=== PATIENT | female | born 1930 | race Caucasian/White ===

== ENCOUNTER → 2016-03-17 | Outpatient (CLI) | payer SELFPAY ==
[2016-03-17 13:08] LABS: Blood Urea Nitrogen 14 mg/dL (7-17); Non-African American GFR(MDRD) >60 (>60 ml/min/1.73 sqM)
== END | disposition home or self-care (01) ==
LOC: LABWHC1 12:16
PROVIDERS: ATTEND Orthopaedic Surgery Orthopaedic Surgery of the Spine
DX: S32.020D Wedge compression fracture of second lumbar vertebra, subsequent encounter for fracture with routine healing (principal); M99.83 Other biomechanical lesions of lumbar region; R53.1 Weakness; M54.16 Radiculopathy, lumbar region; M54.5 Low back pain
CPT/HCPCS: 36415; 82565; 84520

== ENCOUNTER → 2017-03-12 | Outpatient (CLI) | payer MEDICARE ==
[2017-03-12 16:18] LABS: HCT 37.5 % (34.0-46.0); HGB 12.2 gm/dL (11.4-16.0); MCH 27.9 pg (25.0-35.0); MCHC 32.4 g/dL (31.0-37.0); MCV 86.1 fL (80.0-100.0); Mean Platelet Volume 7.5; RBC 4.36 m/uL (3.80-5.40); RDW 13.7 % (11.5-15.5); WBC 10.1 k/uL (3.8-10.6)
[2017-03-12 16:24] LABS: Appearance,Urine Clear (Clear); Bilirubin,Urine Negative (Negative); Blood,Urine Negative (Negative); Color,Urine Yellow; Glucose,Urine (UA) Negative (Negative); Hyaline Casts,Urine 1 /lpf (0-2); Ketones,Urine Negative (Negative); Leukocyte Esterase,Urine Small (Negative); Mucus,Urine Rare /hpf; Nitrite,Urine Negative (Negative); PH, Urine 6.5 (5.0-8.0); Protein,Urine Negative (Negative); RBC,Urine 2 /hpf (0-5); Specific Gravity,Urine 1.013 (1.001-1.035); Squamous Epithelial Cell,Urine 1 /hpf (0-4); Urobilinogen,Urine <2.0 mg/dL (<2.0); WBC,Urine 4 /hpf (0-5)
[2017-03-12 16:28] LABS: Platelet Count 467 k/uL (150-450)
[2017-03-12 16:29] LABS: Albumin 3.8 g/dL (3.5-5.0); Calcium 9.6 mg/dL (8.4-10.2); INR 1.1 (<1.2); Partial Thromboplastin Time 22.1 sec (22.0-30.0); Potassium 4.5 mmol/L (3.5-5.1); Prothrombin Time 10.8 sec (9.0-12.0); Total Bilirubin 0.3 mg/dL (0.2-1.3); Total Protein 6.5 g/dL (6.3-8.2)
== END | disposition home or self-care (01) ==
LOC: LABPAT 15:42
PROVIDERS: ATTEND Orthopaedic Surgery
DX: Z01.818 Encounter for other preprocedural examination (principal); Z01.812 Encounter for preprocedural laboratory examination
CPT/HCPCS: 80053; 81001; 85027; 85610; 85730; 87070; 93005

== ENCOUNTER 2017-03-29 07:55 | Inpatient (IN) | payer BC, MEDICARE ==
[2017-03-16 15:15] VITALS: BMI 30.2
[~2017-03-29 07:55] MED LIST: ACETAMINOPHEN TAB 500 MG TAB PO ONE; HYDROmorphone 0.5 MG/0.5 ML SYRINGE IVP PRN; MELOXICAM 7.5 MG TAB PO ONE; MORPHINE SULFATE 4 MG/ML SYRINGE IV PRN; ROPIVACAINE 246.25 MG, EPINEPHrine 0.5 MG, KETOROLAC 30 MG, cloNIDine HCL/PF 80 MCG, WA... MISCELLANE ONE; TRANEXAMIC ACID 1,000 MG in SODIUM CHLORIDE 0.9% 50 ML IVPB ONE
[2017-03-29 08:35] LABS: Glucose,Whole Blood 96 mg/dL (75-99)
[2017-03-29] MEDS ORDERED: LIDOCAINE 1% 20 ML VIAL (10MG/ML) FOR IV START INTRADERMA ONE (08:37)
[2017-03-29] MEDS: LACTATED RINGERS 1,000 ML IV SCH ×3 (08:37→15:07)
[2017-03-29] MEDS ORDERED: ONDANSETRON 4 MG/2 ML VIAL IVP ONE (08:47)
[2017-03-29] MEDS ORDERED: MIDAZOLAM 2 MG/2 ML VIAL IVP ONE (09:02)
[2017-03-29] MEDS ORDERED: MAGNESIUM HYDROXIDE 2,400 MG/10 ML CUP PO PRN (09:18)
[2017-03-29] MEDS ORDERED: HYDROcodone/APAP 7.5-325MG 1 EACH TAB PO PRN (09:18)
[2017-03-29] MEDS ORDERED: NALOXONE 0.4 MG/ML 1 ML VIAL IV PRN (09:18)
[2017-03-29] MEDS ORDERED: hydrOXYzine PAMOATE 25 MG CAP PO PRN (09:18)
[2017-03-29] MEDS ORDERED: DIAZEPAM 5 MG TAB PO PRN ×2 (09:18)
[2017-03-29] MEDS ORDERED: HYDROmorphone 2 MG/ML 1 ML SYRINGE IVP PRN ×4 (09:18)
[2017-03-29] MEDS ORDERED: ONDANSETRON 4 MG/2 ML VIAL IVP PRN (09:18)
[2017-03-29] MEDS ORDERED: BISACODYL 10 MG SUPP RECTAL PRN (09:18)
[2017-03-29] MEDS ORDERED: NA PHOS,M-B/NA PHOS,DI-BA 133 ML ENEMA RECTAL PRN (09:18)
[2017-03-29] MEDS ORDERED: MIDAZOLAM 2 MG/2 ML VIAL ONE (09:47)
[2017-03-29] MEDS ORDERED: fentaNYL (PF) 50 MCG/ML 2 ML AMP ONE (09:47)
[2017-03-29] MEDS ORDERED: TRANEXAMIC ACID 1,000 MG/10 ML VIAL ONE (09:47)
[2017-03-29] MEDS ORDERED: diphenhydrAMINE 50 MG/ML 1 ML VIAL ONE (09:47)
[2017-03-29] MEDS ORDERED: SODIUM CHLORIDE 0.9% 100 ML BAG ONE (09:47)
[2017-03-29] MEDS ORDERED: ceFAZolin 1,000 MG in SODIUM CHLORIDE 0.9% 1,000 ML IRRIGATION ONE ×2 (09:47→10:32)
[2017-03-29] MEDS: ceFAZolin IN SWFI 2 GM/20 ML SYRINGE IVP ONE ×2 (09:53→09:55)
[2017-03-29] MEDS ORDERED: LACTATED RINGERS 1,000 ML IV ONE (11:02)
--- NOTE | 2017-03-29 11:03 | P.OP ---
Date of Procedure: 03/29/17 Preoperative Diagnosis: Severe osteoarthritis left knee Postoperative Diagnosis: Severe osteoarthritis left knee Procedure(s) Performed: Left total knee arthroplasty Implants: Ibarra [employer] Nephew Oxinium femoral component size 5 narrow, left Ibarra [employer] Nephew So II left nonporous tibial baseplate size 4 Ibarra [employer] Nephew size 9 mm Legion XLPE high flexion articular insert, size 3-4 Ibarra [employer] Nephew So II resurfacing patellar component, 32 mm All components were cemented using Penelope bone cement.. The articulation is Oxinium on polyethylene. Anesthesia: spinal Surgeon: Eliezer Young Assistant Front Office Manager #1: Molly Madison Estimated Blood Loss (ml): 50 Pathology: other (Bone and cartilage) Condition: stable Disposition: PACU Indications for Procedure: After failure of conservative treatment we discussed the surgical and nonsurgical treatment options at length. Patient wishes to proceed with a total knee arthroplasty. Complications specific to this procedure were discussed at length, including but not limited to infection, bleeding, stiffness , and nerve injury. Patient is aware of all these complications and informed consent was obtained Operative Findings: The operative findings are consistent with severe osteoarthritis of the left knee Description of Procedure: Patient was seen in the preoperative area consent was reviewed and operative site was marked with a skin marker. An adductor canal pain catheter was placed by anesthesia in the preoperative area. Patient was then brought to the operating room and given preoperative antibiotics intravenously. A spinal anesthetic was administered by the anesthesia department. A tourniquet was placed on the upper thigh and the lower extremity was prepped and draped in usual sterile fashion. A gram of transexamic acid was given. A universal timeout was then performed which confirmed the patient's name, surgical site, ALLERGIES, and consent. The lower extremity was then exsanguinated and tourniquet was inflated to 250 mmHg. A standard and anterior midline approach to the knee was performed. The skin and subcutaneous tissue was dissected down to the patellar tendon. A medial parapatellar arthrotomy was then performed. The knee was then extended, the patellar was everted, and the knee was again flexed. Anterior horns of both menisci were excised, and a release was performed to the posterior medial aspect of the knee. On gross visual inspection, there was complete loss of articular cartilage in the medial and patellofemoral joint spaces. There was also significant cartilage damage in the lateral compartment. There were multiple periarticular osteophytes which were then removed with a Ronguer. The femoral canal was then opened with the appropriate drill, and the intramedullary femoral cutting guide was then placed and set for 4 of valgus. The distal femoral cutting block was then pinned in place, and the distal femur was then cut. The cutting block was then removed and the cut was checked for flatness. Next, the sizing guide was then placed and set for 3 external rotation based off of the epicondylar axis and Whitesides line. After the femur was sized, the appropriate 4-in-1 cutting block was then pinned in place. The anterior condyles were cut without notching. The posterior and chamfer cuts were performed while protecting the collateral ligaments. The cutting block was then removed, and the femoral canal was plugged with autologous bone. Attention was then directed to the tibia. The remaining ACL was removed with a Ronguer, and the tibia was then gently subluxed forward with a large bent knee retractor. Any remaining menisci was excised. The posterior lateral corner was cauterized in order to cauterize the lateral geniculate artery. The extra medullary tibial cutting guide was then placed, set for the appropriate rotation , slope, and depth of resection. The proximal tibia cutting guide was then pinned in place. Proximal tibia was then cut and sized. Next trials were then placed with the appropriate-sized insert. The knee was able to fully extend and flex to 130 and was stable throughout all range of motion. The knee was then extended, patella everted. Patella was then measured, and then using an osteotomy guide, the patella was cut at the appropriate level. The patella was then measured and drilled and the patella trial was then placed. The knee was then taken through range of motion with the patella trial and the patella tracked normally. The knee was then extended patella trial was then removed and the patella was everted. Knee was then flexed and lug holes were drilled through the femoral trial and the femoral trial was then removed. The tibial was then exposed, and the tibial broach guide was then pinned in place after it was set for the appropriate rotation to allow for the most coverage without overhang. The tibia was then reamed and broached. The cut surfaces of bone were then irrigated with pulsatile lavage. The posterior structures were injected with the ropivacaine solution. The knee was also irrigated with Irrisept solution. The components were then opened, the cement was mixed, and the components were then cemented in place. The cement was allowed to harden with the knee in full extension. While the cement was hardening, the remaining soft tissues were then injected with a ropivacaine solution, which consisted of 246.25 mg of ropivacaine, 0.5 mg of epinephrine, 30 mg of Toradol, 80 g of clonidine, and 48.45 mL of sterile water, for a total of 100 mL of fluid injected. After the cemented hardened. The tourniquet was released, and hemostasis was obtained. A second gram of transexamic acid was given. The knee was again irrigated. The knee was again taken through range of motion and found to be stable throughout all range of motion of 0-130 , and the patella tracked normally. The fascia was then closed with #2 strata fix suture. The subcutaneous tissue was closed with 3-0 Vicryl and 3-0 strata fix. Dermabond glue was used for the skin and placed with the knee in flexion. The patient was placed in a sterile silver dressing. Patient was then transferred to recovery room in stable condition. The marketing assistant retail division [place] was required due the complexity surgery and the need for a skilled rn medical surgical. She assisted in positioning, draping, retraction, and closure of the wound.
[2017-03-29 11:54] LABS: Glucose,Whole Blood 112 mg/dL (75-99)
--- NOTE | 2017-03-29 12:49 | XR ---
EXAMINATION TYPE: XR knee limited LT DATE OF EXAM: 03/29/2017 CLINICAL HISTORY: Left knee pain and arthritis status post total knee replacement. TECHNIQUE: Portable AP and crosstable lateral views of the left knee are obtained immediately postop eratively. COMPARISON: Left knee x-ray February 08, 2017 FINDINGS: Metallic hardware from total left knee arthroplasty is seen and appears satisfactory in al ignment and position. Eagle osseous structures are demineralized. There is evidence of recent surge ry with diffuse subcutaneous gas anteriorly and medially noted. Posterior vascular calcification is p resent. IMPRESSION: METALLIC HARDWARE FROM TOTAL LEFT KNEE ARTHROPLASTY IS SATISFACTORY IN ALIGNMENT.
[2017-03-29] MEDS ORDERED: ROPIVACAINE 1,100 MG, SODIUM CHLORIDE 0.9% 330 ML MISCELLANE PRN ×2 (13:20)
[2017-03-29] MEDS: SODIUM CHLORIDE 0.9% 1,000 ML IV SCH (15:36)
[2017-03-29] MEDS: ceFAZolin IN SWFI 2 GM/20 ML SYRINGE IVP SCH (17:06)
[2017-03-29] MEDS: ATORVASTATIN 40 MG TAB PO SCH (17:06)
[2017-03-29] MEDS: EZETIMIBE 10 MG TAB PO SCH (17:06)
[2017-03-29 17:16] LABS: Glucose,Whole Blood 102 mg/dL (75-99)
[2017-03-29] MEDS: INSULIN ASPART 100 UNIT/ML 1 ML 10 ML VIAL SQ SCH ×2 (17:36→22:00)
[2017-03-29 21:11] LABS: Glucose,Whole Blood 119 mg/dL (75-99)
[2017-03-29] MEDS: ASPIRIN 325 MG TAB PO SCH (22:01)
[2017-03-29] MEDS: SENNOSIDES-DOCUSATE SODIUM 1 EACH TAB PO SCH (22:01)
[2017-03-30] MEDS: ceFAZolin IN SWFI 2 GM/20 ML SYRINGE IVP SCH (01:20)
[2017-03-30] MEDS: SODIUM CHLORIDE 0.9% 1,000 ML IV SCH ×2 (01:20→15:09)
[2017-03-30] MEDS ORDERED: ACETAMINOPHEN TAB 325 MG TAB PO PRN (01:38)
[2017-03-30] MEDS: LEVOTHYROXINE 75 MCG TAB PO SCH (05:38)
[2017-03-30] MEDS: LACTATED RINGERS 1,000 ML IV SCH (05:47)
[2017-03-30 07:16] LABS: Glucose,Whole Blood 129 mg/dL (75-99)
[2017-03-30] MEDS: HYDROcodone/APAP 7.5-325MG 1 EACH TAB PO PRN ×2 (07:25→17:55)
[2017-03-30 08:01] LABS: Basophils # (A) 0.1 k/uL (0-0.2); Basophils % (A) 0 %; Eosinophils # (A) 0.1 k/uL (0-0.7); Eosinophils % (A) 1 %; HCT 33.1 % (34.0-46.0); HGB 10.6 gm/dL (11.4-16.0); Lymphocytes # (A) 0.5 k/uL (1.0-4.8); Lymphocytes % (A) 3 %; MCH 27.8 pg (25.0-35.0); MCHC 31.9 g/dL (31.0-37.0); Monocytes # (A) 1.6 k/uL (0-1.0); Monocytes % (A) 9 %; Neutrophils # (A) 16.1 k/uL (1.3-7.7); Neutrophils % (A) 87 %; RDW 14.8 % (11.5-15.5); WBC 18.6 k/uL (3.8-10.6)
[2017-03-30 08:02] LABS: Platelet Count 103 k/uL (150-450)
[2017-03-30] MEDS: INSULIN ASPART 100 UNIT/ML 1 ML 10 ML VIAL SQ SCH ×4 (08:10→21:24)
[2017-03-30] MEDS: ATORVASTATIN 40 MG TAB PO SCH (08:25)
[2017-03-30] MEDS: ASPIRIN 325 MG TAB PO SCH ×2 (08:25→21:24)
[2017-03-30] MEDS: MELOXICAM 7.5 MG TAB PO SCH (08:25)
[2017-03-30] MEDS: EZETIMIBE 10 MG TAB PO SCH (08:25)
--- NOTE | 2017-03-30 09:55 | P.PN ---
Subjective Progress Note Date: 03/30/17 This is an 87-year-old female who is status post left total knee arthroplasty. This is postoperative day #1. Patient has complained of pain to the left knee but states it is under control. Patient denies any fever/chills, numbness, weakness, tingling, abdominal pain, shortness of breath or chest pain. Objective - Vital Signs Vital signs: Vital Signs Temp 98.6 F 03/30/17 08:29 Pulse 70 03/30/17 07:00 Resp 16 03/30/17 07:00 BP 94/61 03/30/17 07:00 Pulse Ox 95 03/30/17 07:00 Intake & Output 03/29/17 03/30/17 03/30/17 18:59 06:59 18:59 Intake Total 1722 118 Output Total 700 300 Balance 1022 -182 Weight 68.039 kg Intake: IV 1602 Oral 120 118 Output: Urine 650 300 Estimated Blood Loss 50 Other: Voiding Method Urinal Toilet Toilet # Voids 1 1 - Exam Vital signs are stable. Patient is in no acute distress and is alert and oriented 3. Calf is soft and nontender to palpation. Dressing is clean, dry, and intact. Patient has full foot and ankle motion without pain or difficulty. Neurovascular status and circulatory status are intact. - Labs CBC & Chem 7: 03/30/17 07:07 Labs: Abnormal Lab Results - Last 24 Hours (Table) 03/29/17 03/29/17 03/29/17 Range/Units 11:52 17:11 20:57 WBC (3.8-10.6) k/uL Hgb (11.4-16.0) gm/dL Hct (34.0-46.0) % Plt Count (150-450) k/uL Neutrophils # (1.3-7.7) k/uL Lymphocytes # (1.0-4.8) k/uL Monocytes # (0-1.0) k/uL POC Glucose (mg/dL) 112 H 102 H 119 H (75-99) mg/dL 03/30/17 03/30/17 Range/Units 07:07 07:09 WBC 18.6 H (3.8-10.6) k/uL Hgb 10.6 L (11.4-16.0) gm/dL Hct 33.1 L (34.0-46.0) % Plt Count 103 L D (150-450) k/uL Neutrophils # 16.1 H (1.3-7.7) k/uL Lymphocytes # 0.5 L (1.0-4.8) k/uL Monocytes # 1.6 H (0-1.0) k/uL POC Glucose (mg/dL) 129 H (75-99) mg/dL Assessment and Plan (1) Primary osteoarthritis of left knee Current Visit: Yes Status: Acute Code(s): M17.12 - UNILATERAL PRIMARY OSTEOARTHRITIS, LEFT KNEE SNOMED Code(s): 666024276 (2) S/P total knee arthroplasty Current Visit: Yes Status: Acute Code(s): Z96.659 - PRESENCE OF UNSPECIFIED ARTIFICIAL KNEE JOINT SNOMED Code(s): 2038757549848 Plan: #1 Continue with routine postoperative care, leave dressing in place for one week #2 Anticoagulation with aspirin. #3 Physical therapy and CPM today. #4 Appreciate input from medicine. #5 Anticipate discharge to rehab .
--- NOTE | 2017-03-30 10:02 | P.ONQ ---
Anesthesiology Proc Note - PNB - Peripheral Nerve Block Performed Left Adductor Canal Infusion Time Out Performed: Yes Procedure Start Time: 08:59 Procedure Stop Time: :07 Indication: Acute Post-Operative Pain, Requested by physician Sedation Type: Sedate with meaningful contact maintained Preparation: Sterile Dressing Position: Supine Catheter: Indwelling Needle Types: On-Q Needle Size: 100mm (4") Needle Gauge: 18 Technique: Ultrasound Injectate: 0.5% Ropivacaine (see comment for volume) (ropi .5% 20cc) Blood Aspirated: No Pain Paresthesia on Injection Noted: No Resistance on Injection: Normal Events: Uneventful and Well Tolerated
--- NOTE | 2017-03-30 10:20 | P.PN ---
Progress Note - Text 03/30 710am 87-year-old female status post left total knee replacement by Dr. Young. Patient seen this morning and evaluated for postop pain control, she saw confused and I was unable to get a definitive answer from her. On-Q pump solution running at 8 mL an hour. Plan to continue infusion.
[2017-03-30 11:43] LABS: Glucose,Whole Blood 164 mg/dL (75-99)
--- NOTE | 2017-03-30 12:20 | XR ---
EXAMINATION TYPE: XR chest 1V DATE OF EXAM: 03/30/2017 COMPARISON: Prior chest x-ray 02/09/2017 HISTORY: Rehabilitation placement TECHNIQUE: Single frontal view of the chest is obtained. FINDINGS: Lung volumes are low, patient is rotated. There is no focal air space opacity, pleural eff usion, or pneumothorax seen. The cardiac silhouette size is stable accounting for rotation, techniqu e. Bilateral shoulder arthroplasties again noted. Increased density within the right hilar region lik evelia due to previously administered radiographic contrast and is stable. The aorta is dense. The osse ous structures are intact. IMPRESSION: No acute process.
--- NOTE | 2017-03-30 12:52 | P.CONS ---
History of Present Illness - Reason for Consult fever and leukocytosis - History of Present Illness patient was admitted for elective left knee arthroplasty sexes and underwent surgery yesterday patient received perioperative antibiotics patient started having fever today morning and does have leukocytosis chest x-ray did not show atelectasis or pneumonia urine cultures CVA blood cultures were ordered patient will not be started on antibiotics at will continue to monitor if she has febrile episodes patient to be medically started antibiotic. We are also awaiting results of UA. patient denied any dysuria nausea vomiting. Patient is presently on 3 L of oxygen and she'll need incentive spirometry. Review of Systems REVIEW OF SYSTEMS: CONSTITUTIONAL: No fever, no malaise, no fatigue. HEENT: No recent visual problems or hearing problems. Denied any sore throat. CARDIOVASCULAR: No chest pain, orthopnea, PND, no palpitations, no syncope. PULMONARY: No shortness of breath, no cough, no hemoptysis. GASTROINTESTINAL: No diarrhea, no nausea, no vomiting, no abdominal pain. Normoactive bowel sounds. NEUROLOGICAL: No headaches, no weakness, no numbness. HEMATOLOGICAL: Denies any bleeding or petechiae. GENITOURINARY: Denies any burning micturition, frequency, or urgency. MUSCULOSKELETAL/RHEUMATOLOGICAL: Denies any joint pain, swelling, or any muscle pain. ENDOCRINE: Denies any polyuria or polydipsia. The rest of the 14-point review of systems is negative. Past Medical History Past Medical History: Diabetes Mellitus, Hyperlipidemia, Hypertension, Osteoarthritis (OA), Thyroid Disorder Additional Past Medical History / Comment(s): rt eye macular degeneration,colon polpys-benign, "6 months ago lt knee gave out -had pt and xrays told it was arthritis", numbness lower legs/feet,constipation, past compresion fx,steroids Jan 2017 Last Myocardial Infarction Date:: 2008 History of Any Multi-Drug Resistant Organisms: None Reported Past Surgical History: Adenoidectomy, Appendectomy, Back Surgery, Cholecystectomy, Hernia Repair, Hysterectomy, Orthopedic Surgery, Tonsillectomy Additional Past Surgical History / Comment(s): cataracts removed,total rt shoulder,lt shoulder repair,rt total knee,back fusion,multiple finger procedures Past Anesthesia/Blood Transfusion Reactions: Motion Sickness Additional Past Anesthesia/Blood Transfusion Reaction / Comm: "stated "held breath with finger surgery" Past Psychological History: No Psychological Hx Reported Additional Psychological History / Comment(s): pt is a lives with daughter wang. uses walker /w/c when up. Smoking Status: Former smoker Past Alcohol Use History: Occasional Additional Past Alcohol Use History / Comment(s): started smoking at age 14(1944 )and quit 1951. smoked 1 ppd. Past Drug Use History: None Reported - Past Family History Mother Family Medical History: Seizure Disorder Additional Family Medical History / Comment(s): epileptic, anueysm Father Family Medical History: Diabetes Mellitus Additional Family Medical History / Comment(s): macular degeneration, blind Medications and Allergies Home Medications Medication Instructions Recorded Confirmed Type Baclofen [Lioresal] 5 mg PO TID 02/08/17 03/29/17 History Ezetimibe/Simvastatin [Vytorin 1 tab PO DAILY 02/08/17 03/29/17 History 10-80 mg Tablet] Furosemide [Lasix] 40 mg PO DAILY 02/08/17 03/29/17 History Levothyroxine Sodium [Synthroid] 75 mcg PO QAM 02/08/17 03/29/17 History Potassium Chloride ER [K-Dur 10] 10 meq PO BID 02/08/17 03/29/17 History Sennosides [Ex-Lax] 15 mg PO HS 02/08/17 03/29/17 History metFORMIN HCL [Glucophage] 500 mg PO DAILY 02/08/17 03/29/17 History HYDROcodone/APAP 5-325MG [[place] 1 tab PO TID PRN 03/16/17 03/29/17 History 5-325] Stool Softner 1 tab PO HS 03/16/17 03/29/17 History Allergies Allergy/AdvReac Type Severity Reaction Status Date / Time No Known Allergies Allergy Verified 03/29/17 10:03 Physical Exam Vitals: Vital Signs Temp Pulse Pulse Resp BP Pulse Ox 03/30/17 08:29 98.6 F 03/30/17 07:00 100.3 F H 70 16 94/61 95 03/30/17 01:25 100.1 F H 71 16 126/57 92 L 03/29/17 19:59 98.3 F 60 16 104/62 03/29/17 15:31 97.8 F 57 L 16 113/50 98 03/29/17 14:44 58 L 16 110/53 99 03/29/17 14:14 59 L 16 110/53 99 03/29/17 13:44 52 L 16 112/56 100 03/29/17 13:14 56 L 16 109/56 100 Intake and Output 03/29/17 03/30/17 03/30/17 22:59 06:59 14:59 Intake Total 120 118 Output Total 350 300 Balance -230 -182 Intake: Oral 120 118 Output: Urine 350 300 Other: Voiding Method Toilet Toilet # Voids 1 1 Weight 68.039 kg PHYSICAL EXAMINATION: GENERAL: The patient is alert and oriented x3, not in any acute distress. Well developed, well nourished. HEENT: Pupils are round and equally reacting to light. EOMI. No scleral icterus. No conjunctival pallor. Normocephalic, atraumatic. No pharyngeal erythema. No thyromegaly. CARDIOVASCULAR: S1 and S2 present. No murmurs, rubs, or gallops. PULMONARY: Chest is clear to auscultation, no wheezing or crackles. ABDOMEN: Soft, nontender, nondistended, normoactive bowel sounds. No palpable organomegaly. MUSCULOSKELETAL: deferred to orthopedic surgery EXTREMITIES: No cyanosis, clubbing, or pedal edema. NEUROLOGICAL: Gross neurological examination did not reveal any focal deficits. SKIN: No rashes. Results CBC & Chem 7: 03/30/17 07:07 Labs: Abnormal Lab Results - Last 24 Hours (Table) 03/29/17 03/29/17 03/30/17 Range/Units 17:11 20:57 07:07 WBC 18.6 H (3.8-10.6) k/uL Hgb 10.6 L (11.4-16.0) gm/dL Hct 33.1 L (34.0-46.0) % Plt Count 103 L D (150-450) k/uL Neutrophils # 16.1 H (1.3-7.7) k/uL Lymphocytes # 0.5 L (1.0-4.8) k/uL Monocytes # 1.6 H (0-1.0) k/uL POC Glucose (mg/dL) 102 H 119 H (75-99) mg/dL 03/30/17 03/30/17 Range/Units 07:09 11:41 WBC (3.8-10.6) k/uL Hgb (11.4-16.0) gm/dL Hct (34.0-46.0) % Plt Count (150-450) k/uL Neutrophils # (1.3-7.7) k/uL Lymphocytes # (1.0-4.8) k/uL Monocytes # (0-1.0) k/uL POC Glucose (mg/dL) 129 H 164 H (75-99) mg/dL Assessment and Plan Plan: -rule out postoperative fever and sepsis: Source of fever is not clear at this point of time since she received antibiotics yesterday we will closely monitor her in for any further episodes of fever if she does have any patient will be started on antibiotics empirically will also wait for UA chest x-ray did not show pneumonia or atelectasis. -type 2 diabetes mellitus -Hyperlipidemia -Hypertension patient is actually hypotensive will not be started on any antidepressant medications -Osteoarthritis -Hypothyroidism For above-mentioned chronic medical problems patient will be started on appropriate home medications.
[2017-03-30 14:35] LABS: Appearance,Urine Clear (Clear); Bacteria,Urine Rare /hpf; Bilirubin,Urine Negative (Negative); Blood,Urine Negative (Negative); Color,Urine Yellow; Glucose,Urine (UA) Negative (Negative); Ketones,Urine Negative (Negative); Leukocyte Esterase,Urine Trace (Negative); Mucus,Urine Rare /hpf; Nitrite,Urine Negative (Negative); PH, Urine 5.5 (5.0-8.0); Protein,Urine Trace (Negative); RBC,Urine 3 /hpf (0-5); Specific Gravity,Urine 1.024 (1.001-1.035); Squamous Epithelial Cell,Urine 1 /hpf (0-4); Urobilinogen,Urine <2.0 mg/dL (<2.0); WBC,Urine 9 /hpf (0-5)
[2017-03-30 16:59] LABS: Hemoglobin A1C 6.3 % (4.0-6.0)
[2017-03-30 17:39] LABS: Glucose,Whole Blood 133 mg/dL (75-99)
[2017-03-30] MEDS: SENNOSIDES-DOCUSATE SODIUM 1 EACH TAB PO SCH (21:24)
[2017-03-30 21:38] LABS: Glucose,Whole Blood 186 mg/dL (75-99)
[2017-03-31] MEDS: HYDROcodone/APAP 7.5-325MG 1 EACH TAB PO PRN (05:22)
[2017-03-31] MEDS: LEVOTHYROXINE 75 MCG TAB PO SCH (05:22)
[2017-03-31] MEDS: LACTATED RINGERS 1,000 ML IV SCH (05:23)
--- NOTE | 2017-03-31 05:45 | P.PN ---
Progress Note - Text The patient is status post left adductor canal catheter placement. The catheter was placed for postoperative pain control, status post total left arthroplasty. Ropivacaine 0.2% is infusing at 8 mLs per hour. The patient has no complaints of left lower extremity numbness or weakness. Patient's VAS score is 2-3 -10. Assessment: Patient's adductor canal catheter is in place and working appropriately. Plan: continue infusion and adjust it as needed.
[2017-03-31 07:30] LABS: Glucose,Whole Blood 148 mg/dL (75-99)
[2017-03-31 07:56] LABS: MCH 27.2 pg (25.0-35.0); MCHC 31.2 g/dL (31.0-37.0); MCV 87.2 fL (80.0-100.0); Mean Platelet Volume 8.9; Platelet Count 119 k/uL (150-450); RBC 3.67 m/uL (3.80-5.40); RDW 14.9 % (11.5-15.5); WBC 21.4 k/uL (3.8-10.6)
[2017-03-31 08:15] LABS: Anion Gap 8 mmol/L; Blood Urea Nitrogen 16 mg/dL (7-17); Calcium 8.4 mg/dL (8.4-10.2); Carbon Dioxide 28 mmol/L (22-30); Chloride 103 mmol/L (98-107); Glucose 124 mg/dL (74-99); Potassium 3.8 mmol/L (3.5-5.1); Sodium 139 mmol/L (137-145)
[2017-03-31] MEDS: ASPIRIN 325 MG TAB PO SCH ×2 (09:04→20:08)
[2017-03-31] MEDS: EZETIMIBE 10 MG TAB PO SCH (09:04)
[2017-03-31] MEDS: MELOXICAM 7.5 MG TAB PO SCH (09:04)
--- NOTE | 2017-03-31 09:04 | P.PN ---
Subjective Progress Note Date: 03/31/17 This is an 87-year-old female who is status post left total knee arthroplasty. This is postoperative day #2. Patient states she has been up and walking with physical therapy. Patient denies any new complaints today. Objective - Vital Signs Vital signs: Vital Signs Temp 98.5 F 03/31/17 07:00 Pulse 85 03/31/17 07:00 Resp 16 03/31/17 07:00 BP 100/60 03/31/17 07:00 Pulse Ox 95 03/31/17 07:00 Intake & Output 03/30/17 03/31/17 03/31/17 18:59 06:59 18:59 Intake Total 638 700 Output Total 300 400 Balance 338 300 Intake: IV 520 520 Sodium Chloride 0.9% 1, 520 520 000 ml @ 65 mls/hr IV . [id number] MELBA Rx#:[id number] Oral 118 180 Output: Urine 300 400 Other: Voiding Method Toilet # Voids 3 - Exam Vital signs are stable. Patient is in no acute distress and is alert and oriented 3. Calf is soft and nontender to palpation. Dressing is clean, dry, and intact. Patient has full foot and ankle motion without pain or difficulty. Neurovascular status and circulatory status are intact. - Labs CBC & Chem 7: 03/31/17 07:35 03/31/17 07:35 Labs: Abnormal Lab Results - Last 24 Hours (Table) 03/30/17 03/30/17 03/30/17 Range/Units 07:07 11:41 13:40 WBC (3.8-10.6) k/uL RBC (3.80-5.40) m/uL Hgb (11.4-16.0) gm/dL Hct (34.0-46.0) % Plt Count (150-450) k/uL Glucose (74-99) mg/dL POC Glucose (mg/dL) 164 H (75-99) mg/dL Hemoglobin A1c 6.3 H (4.0-6.0) % Urine Protein Trace H (Negative) Ur Leukocyte Esterase Trace H (Negative) Urine WBC 9 H (0-5) /hpf Urine Bacteria Rare H (None) /hpf Urine Mucus Rare H (None) /hpf 03/30/17 03/30/17 03/31/17 Range/Units 17:34 21:19 07:15 WBC (3.8-10.6) k/uL RBC (3.80-5.40) m/uL Hgb (11.4-16.0) gm/dL Hct (34.0-46.0) % Plt Count (150-450) k/uL Glucose (74-99) mg/dL POC Glucose (mg/dL) 133 H 186 H 148 H (75-99) mg/dL Hemoglobin A1c (4.0-6.0) % Urine Protein (Negative) Ur Leukocyte Esterase (Negative) Urine WBC (0-5) /hpf Urine Bacteria (None) /hpf Urine Mucus (None) /hpf 03/31/17 03/31/17 Range/Units 07:35 07:35 WBC 21.4 H (3.8-10.6) k/uL RBC 3.67 L (3.80-5.40) m/uL Hgb 10.0 L (11.4-16.0) gm/dL Hct 32.0 L (34.0-46.0) % Plt Count 119 L (150-450) k/uL Glucose 124 H (74-99) mg/dL POC Glucose (mg/dL) (75-99) mg/dL Hemoglobin A1c (4.0-6.0) % Urine Protein (Negative) Ur Leukocyte Esterase (Negative) Urine WBC (0-5) /hpf Urine Bacteria (None) /hpf Urine Mucus (None) /hpf Assessment and Plan (1) Primary osteoarthritis of left knee Current Visit: Yes Status: Acute Code(s): M17.12 - UNILATERAL PRIMARY OSTEOARTHRITIS, LEFT KNEE SNOMED Code(s): 636402260 (2) S/P total knee arthroplasty Current Visit: Yes Status: Acute Code(s): Z96.659 - PRESENCE OF UNSPECIFIED ARTIFICIAL KNEE JOINT SNOMED Code(s): 9850252214995 Plan: #1 Continue with routine postoperative care, leave dressing in place for one week #2 Anticoagulation with aspirin. #3 Physical therapy and CPM today. #4 Appreciate input from medicine. #5 Anticipate discharge to rehab .
[2017-03-31] MEDS: ATORVASTATIN 40 MG TAB PO SCH (09:05)
[2017-03-31] MEDS: INSULIN ASPART 100 UNIT/ML 1 ML 10 ML VIAL SQ SCH ×4 (09:12→20:21)
[2017-03-31] MEDS: SODIUM CHLORIDE 0.9% 1,000 ML IV SCH ×2 (12:02→23:26)
[2017-03-31 12:12] LABS: Glucose,Whole Blood 177 mg/dL (75-99)
--- NOTE | 2017-03-31 14:51 | P.PN ---
Subjective Patient doesn't have any more fevers patient is otherwise clinically doing well patient will not require any antibiotics patient did not receive much of nonsteroidal anti-inflammatories are acetaminophen since yesterday which came as a fever. All the septic workup is negative urine is not impressive for urinary tract infection but does have some WBC and patient has worsening leukocytosis because of which are good and started on antibiotics treating her urinary tract infection Constitutional: Denied any fatigue denied any fever. Cardio vascular: denied any chest pain, palpitations Gastrointestinal denied any nausea vomiting Pulmonary: Denied any shortness of breath cough Neurologic denied any new focal deficits Objective - Vital Signs Vital signs: Vital Signs Temp 98.5 F 03/31/17 07:00 Pulse 85 03/31/17 07:00 Resp 16 03/31/17 07:00 BP 100/60 03/31/17 07:00 Pulse Ox 95 03/31/17 07:00 Intake & Output 03/30/17 03/31/17 03/31/17 18:59 06:59 18:59 Intake Total 638 700 800 Output Total 300 400 Balance 338 300 800 Intake: IV 520 520 Sodium Chloride 0.9% 1, 520 520 000 ml @ 65 mls/hr IV . [id number] [facility] Rx#:[id number] Oral 118 180 800 Output: Urine 300 400 Other: Voiding Method Toilet # Voids 3 - Exam PHYSICAL EXAMINATION: GENERAL: The patient is alert and oriented x3, not in any acute distress. Well developed, well nourished. HEENT: Pupils are round and equally reacting to light. EOMI. No scleral icterus. No conjunctival pallor. Normocephalic, atraumatic. No pharyngeal erythema. No thyromegaly. CARDIOVASCULAR: S1 and S2 present. No murmurs, rubs, or gallops. PULMONARY: Chest is clear to auscultation, no wheezing or crackles. ABDOMEN: Soft, nontender, nondistended, normoactive bowel sounds. No palpable organomegaly. MUSCULOSKELETAL: deferred to orthopedic surgery EXTREMITIES: No cyanosis, clubbing, or pedal edema. NEUROLOGICAL: Gross neurological examination did not reveal any focal deficits. SKIN: No rashes. - Labs CBC & Chem 7: 03/31/17 07:35 03/31/17 07:35 Labs: Abnormal Lab Results - Last 24 Hours (Table) 03/30/17 03/30/1703/30/18 Range/Units 07:07 17:34 21:19 WBC (3.8-10.6) k/uL RBC (3.80-5.40) m/uL Hgb (11.4-16.0) gm/dL Hct (34.0-46.0) % Plt Count (150-450) k/uL Glucose (74-99) mg/dL POC Glucose (mg/dL) 133 H 186 H (75-99) mg/dL Hemoglobin A1c 6.3 H (4.0-6.0) % 03/31/17 03/31/17 03/31/17 Range/Units 07:15 07:35 07:35 WBC 21.4 H (3.8-10.6) k/uL RBC 3.67 L (3.80-5.40) m/uL Hgb 10.0 L (11.4-16.0) gm/dL Hct 32.0 L (34.0-46.0) % Plt Count 119 L (150-450) k/uL Glucose 124 H (74-99) mg/dL POC Glucose (mg/dL) 148 H (75-99) mg/dL Hemoglobin A1c (4.0-6.0) % 03/31/17 Range/Units 11:58 WBC (3.8-10.6) k/uL RBC (3.80-5.40) m/uL Hgb (11.4-16.0) gm/dL Hct (34.0-46.0) % Plt Count (150-450) k/uL Glucose (74-99) mg/dL POC Glucose (mg/dL) 177 H (75-99) mg/dL Hemoglobin A1c (4.0-6.0) % Microbiology - Last 24 Hours (Table) 03/30/17 07:07 Blood Culture - Preliminary Blood No Growth after 24 hours Assessment and Plan Plan: -Episode of fever and the does and worsening leukocytosis: Urine is not really impressive but I cannot completely rule out urinary tract infection because of which patient will be started on sepsis although I didn't examine the surgical site area which can be another source of infection to did not show any pneumonic process. -type 2 diabetes mellitus -Hyperlipidemia -Hypertension patient is actually hypotensive will not be started on any antidepressant medications -Osteoarthritis -Hypothyroidism For above-mentioned chronic medical problems patient will be started on appropriate home medications.
[2017-03-31] MEDS: cefTRIAXone IN SWFI 1,000 MG/10 ML SYRINGE IVP SCH (17:30)
[2017-03-31 18:07] LABS: Glucose,Whole Blood 119 mg/dL (75-99)
[2017-03-31] MEDS: SENNOSIDES-DOCUSATE SODIUM 1 EACH TAB PO SCH (20:07)
[2017-03-31 20:16] LABS: Glucose,Whole Blood 220 mg/dL (75-99)
[2017-03-31 20:32] LABS: Glucose,Whole Blood 158 mg/dL (75-99)
[2017-04-01] MEDS: LACTATED RINGERS 1,000 ML IV SCH (04:54)
[2017-04-01] MEDS: LEVOTHYROXINE 75 MCG TAB PO SCH (04:55)
[2017-04-01 06:52] LABS: Basophils % (A) 0 %; Eosinophils # (A) 0.2 k/uL (0-0.7); Eosinophils % (A) 1 %; HCT 31.2 % (34.0-46.0); HGB 9.8 gm/dL (11.4-16.0); Lymphocytes # (A) 0.7 k/uL (1.0-4.8); Lymphocytes % (A) 4 %; MCH 27.6 pg (25.0-35.0); MCHC 31.3 g/dL (31.0-37.0); MCV 88.2 fL (80.0-100.0); Mean Platelet Volume 9.3; Monocytes # (A) 1.1 k/uL (0-1.0); Monocytes % (A) 6 %; Neutrophils # (A) 16.7 k/uL (1.3-7.7); Neutrophils % (A) 89 %; Platelet Count 119 k/uL (150-450); RBC 3.54 m/uL (3.80-5.40); RDW 15.6 % (11.5-15.5); WBC 18.8 k/uL (3.8-10.6)
[2017-04-01 07:02] LABS: Anion Gap 5 mmol/L; Blood Urea Nitrogen 13 mg/dL (7-17); Calcium 8.2 mg/dL (8.4-10.2); Carbon Dioxide 29 mmol/L (22-30); Chloride 103 mmol/L (98-107); Glucose 105 mg/dL (74-99); Sodium 137 mmol/L (137-145)
[2017-04-01 07:14] LABS: Glucose,Whole Blood 110 mg/dL (75-99)
[2017-04-01 07:21] VITALS: BP 118/69; PULSE 77; RESP 14; TEMP 99.3
--- NOTE | 2017-04-01 07:54 | P.PN ---
Progress Note - Text Anesthesia POD 3. Patient is status post left TKR under spinal anesthesia with a left adductor canal catheter placed for postoperative pain relief. With ropivacaine 0.2% running at 8 cc's per hour, the patient's VAS is (1, 3). Catheter site is clean dry and intact.
[2017-04-01] MEDS: INSULIN ASPART 100 UNIT/ML 1 ML 10 ML VIAL SQ SCH ×2 (08:48→12:50)
[2017-04-01] MEDS: MELOXICAM 7.5 MG TAB PO SCH (08:54)
[2017-04-01] MEDS: EZETIMIBE 10 MG TAB PO SCH (08:54)
[2017-04-01] MEDS: ATORVASTATIN 40 MG TAB PO SCH (08:55)
[2017-04-01] MEDS: ASPIRIN 325 MG TAB PO SCH (08:55)
--- NOTE | 2017-04-01 09:04 | P.DS ---
Providers Date of admission: 03/29/17 07:55 Expected date of discharge: 04/01/17 Attending physician: Eliezer Young Consults: 03/29/17 09:18 Consult Physician Routine Consulting Provider: Sallie Crenshaw Consult Reason/Comments: medical management Do you want consulting provider notified?: Yes Primary care physician: Arturo Gan - Discharge Diagnosis(es) (1) Primary osteoarthritis of left knee Current Visit: Yes Status: Acute (2) S/P total knee arthroplasty Current Visit: Yes Status: Acute Hospital Course: This is a 87-year-old female with known history of degenerative arthritis of the left knee. The patient presents for evaluation. After discussion and consideration patient elects to proceed with total knee arthroplasty. The patient is seen preoperatively by Dr. Young and cleared for surgery. Patient is admitted to [facility] on 03/29/2017 for total knee arthroplasty. The procedures performed without complication or sequelae. The patient is doing well postoperatively. Labs and vital signs are stable on day of discharge. Patient did show evidence for urinary tract infection and was started on antibiotics per internal medicine. Patient is afebrile on day of discharge. On day of discharge patient's knee incision is healing well. There is minimal erythema. There is no drainage noted at this time. There is minimal soft tissue swelling to the knee. Patient has full foot and ankle motion without difficulty or pain. Neurovascular status to the left lower extremity is intact. Patient is discharged to rehab in good condition. Please see med rec for accurate list of home medications. Plan - Discharge Summary Discharge Rx Participant: Yes New Discharge Prescriptions: New Aspirin 325 mg PO BID #60 tab HYDROcodone/APAP 7.5-325MG [[place] 7.5-325] 1 - 2 tab PO Q4-6H PRN #90 tab PRN Reason: Pain Sennosides [Senokot] 1 tab PO BID #60 tablet No Action Ezetimibe/Simvastatin [Vytorin 10-80 mg Tablet] 1 tab PO DAILY metFORMIN HCL [Glucophage] 500 mg PO DAILY Potassium Chloride ER [K-Dur 10] 10 meq PO BID Levothyroxine Sodium [Synthroid] 75 mcg PO QAM Furosemide [Lasix] 40 mg PO DAILY [place] [Lioresal] 5 mg PO TID Sennosides [Ex-Lax] 15 mg PO HS HYDROcodone/APAP 5-325MG [[place] 5-325] 1 tab PO TID PRN PRN Reason: Pain Stool Softner 1 tab PO HS Discharge Medication List Baclofen [Lioresal] 5 mg PO TID 02/08/17 [History] Ezetimibe/Simvastatin [Vytorin 10-80 mg Tablet] 1 tab PO DAILY 02/08/17 [History ] Furosemide [Lasix] 40 mg PO DAILY 02/08/17 [History] Levothyroxine Sodium [Synthroid] 75 mcg PO QAM 02/08/17 [History] Potassium Chloride ER [K-Dur 10] 10 meq PO BID 02/08/17 [History] Sennosides [Ex-Lax] 15 mg PO HS 02/08/17 [History] metFORMIN HCL [Glucophage] 500 mg PO DAILY 02/08/17 [History] HYDROcodone/APAP 5-325MG [[place] 5-325] 1 tab PO TID PRN 03/16/17 [History] Stool Softner 1 tab PO HS 03/16/17 [History] Aspirin 325 mg PO BID #60 tab 04/01/17 [Rx] HYDROcodone/APAP 7.5-325MG [[place] 7.5-325] 1 - 2 tab PO Q4-6H PRN #90 tab [Rx] Sennosides [Senokot] 1 tab PO BID #60 tablet 04/01/17 [Rx] Follow up Appointment(s)/Referral(s): Eliezer Young DO [Doctor of Osteopathic Medicine] - 2 Weeks Ambulatory/Diagnostic Orders: Continuous Passive Motion (CPM) Machine [DME.AMB1] Time Frame: 3 Weeks, Location : Determined By Patient Activity/Diet/Wound Care/Special Instructions: Weightbearing as tolerated with a walker CPM 5-6h daily Leave dressing intact. May be removed by home care nurse in 7 days, 04/05/2014. May shower with dressing on. [facility] with questions or concerns [phone] Discharge Disposition: TRANSFER TO SNF/ECF
[2017-04-01] MEDS: cefTRIAXone IN SWFI 1,000 MG/10 ML SYRINGE IVP SCH (10:16)
[2017-04-01 11:32] LABS: Glucose,Whole Blood 227 mg/dL (75-99)
== END 2017-04-01 14:40 | DRG 470 ==
LOC: 2ORMAIN 07:55 → 3SUR 14:43
PROVIDERS: ADMIT Orthopaedic Surgery; ATTEND Orthopaedic Surgery
PROC: 0SRD069 Replacement of Left Knee Joint with Oxidized Zirconium on Polyethylene Synthetic Substitute, Cemented, Open Approach (ICD-10-PCS; principal; 2017-03-29 09:50)
DX: M17.12 Unilateral primary osteoarthritis, left knee (principal); E11.9 Type 2 diabetes mellitus without complications; N39.0 Urinary tract infection, site not specified; E03.9 Hypothyroidism, unspecified; E78.5 Hyperlipidemia, unspecified; H35.30 Unspecified macular degeneration; I10 Essential (primary) hypertension; I25.2 Old myocardial infarction; Z82.0 Family history of epilepsy and other diseases of the nervous system; Z82.1 Family history of blindness and visual loss; Z83.3 Family history of diabetes mellitus; Z87.891 Personal history of nicotine dependence; Z79.84 Long term (current) use of oral hypoglycemic drugs; Z79.890 Hormone replacement therapy; Z79.891 Long term (current) use of opiate analgesic; Z79.899 Other long term (current) drug therapy
CPT/HCPCS: 71045; 80048; 81001; 83036; 85025; 85027; 87040; 88300

== ENCOUNTER → 2017-04-19 | Outpatient (CLI) | payer MEDICARE ==
--- NOTE | 2017-04-19 15:25 | US ---
EXAMINATION TYPE: US venous doppler duplex LE LT DATE OF EXAM: 04/19/2017 3:00 PM COMPARISON: NONE CLINICAL HISTORY: 87-year-old female M25.562 PAIN L KNEE. SIDE PERFORMED: Left TECHNIQUE: The lower extremity deep venous system is examined utilizing real time linear array sonog ralph with graded compression, doppler sonography and color-flow sonography. FINDINGS: VESSELS IMAGED: External Iliac Vein (EIV) Common Femoral Vein Deep Femoral Vein Greater Saphenous Vein * Femoral Vein Popliteal Vein Small Saphenous Vein * Proximal Calf Veins Posterior tibial veins (* superficial vessels) Results phoned to Evelyn at office immediately following exam. Left Leg: Bakers cyst measuring 2.0 x 1.7 x 2.0cm IMPRESSION: 1. No evidence for DVT within the left lower extremity. 2. Small 2 cm Tolbert's cyst.
== END | disposition home or self-care (01) ==
LOC: RADUSWWP 14:14
PROVIDERS: ATTEND Orthopaedic Surgery
DX: M71.22 Synovial cyst of popliteal space [Baker], left knee (principal); Z96.652 Presence of left artificial knee joint

== ENCOUNTER 2017-10-02 09:47 | Emergency (ER) | payer MEDICARE ==
[2017-10-02] MEDS ORDERED: SODIUM CHLORIDE 0.9% 1,000 ML IV STA (10:18)
--- NOTE | 2017-10-02 10:38 | ED ---
General Adult HPI - General Chief complaint: Abdominal Pain Stated complaint: Pain and swelling in the abd w/lump Time Seen by Provider: 10/02/17 10:11 Source: patient, family, RN notes reviewed Mode of arrival: ambulatory Limitations: no limitations - History of Present Illness Initial comments: Patient 87-year-old female presented to the emergency room today with chief complaint of abdominal pain. Patient does not that she's had some discomfort upper abdomen. Patient states that she did feel little nauseous last week. Patient states that she has been having normal bowel movement but feels more distended. Patient denies any other complaints or symptoms. Patient denies any recent fever, chills, shortness of breath, chest pain, back pain, numbness or tingling, dysuria or hematuria, constipation or diarrhea, headaches or visual changes, or any other complaints. - Related Data Home Medications Medication Instructions Recorded Confirmed Ezetimibe/Simvastatin [Vytorin 1 tab PO DAILY 02/08/17 03/29/17 10-80 mg Tablet] Furosemide [Lasix] 40 mg PO DAILY 02/08/17 03/29/17 Levothyroxine Sodium [Synthroid] 75 mcg PO QAM 02/08/17 03/29/17 Potassium Chloride ER [K-Dur 10] 10 meq PO BID 02/08/17 03/29/17 Sennosides [Ex-Lax] 15 mg PO HS 02/08/17 03/29/17 metFORMIN HCL [Glucophage] 500 mg PO DAILY 02/08/17 03/29/17 HYDROcodone/APAP 5-325MG [[place] 1 tab PO TID PRN 03/16/17 03/29/17 5-325] Stool Softner 1 tab PO HS 03/16/17 03/29/17 Previous Rx's Medication Instructions Recorded Aspirin 325 mg PO BID #60 tab 04/01/17 Cefuroxime Axetil [Ceftin] 500 mg PO BID #10 tab 04/01/17 HYDROcodone/APAP 7.5-325MG [[place] 1 - 2 tab PO Q4-6H PRN #90 tab 04/01/17 7.5-325] INSULIN LISPRO (HumaLOG) [humaLOG] 0 unit SQ ACHS #1 vial 04/01/17 Sennosides [Senokot] 1 tab PO BID #60 tablet 04/01/17 Famotidine [Pepcid] 20 mg PO BID #20 tablet 10/02/17 Allergies Allergy/AdvReac Type Severity Reaction Status Date / Time No Known Allergies Allergy Verified 03/29/17 10:03 Review of Systems ROS Statement: Those systems with pertinent positive or pertinent negative responses have been documented in the HPI. ROS Other: All systems not noted in ROS Statement are negative. Past Medical History Past Medical History: Diabetes Mellitus, Hyperlipidemia, Hypertension, Myocardial Infarction (MS), Osteoarthritis (OA), Thyroid Disorder Additional Past Medical History / Comment(s): rt eye macular degeneration, past cataracts,stress test,colon polpys-benign, "6 months ago lt knee gave out -had pt and xrays told it was arthritis", numbness loer legs/feetconstipation, past compresion fx to t10.l3,l4 Last Myocardial Infarction Date:: 2008 History of Any Multi-Drug Resistant Organisms: None Reported Past Surgical History: Adenoidectomy, Appendectomy, Cholecystectomy, Hysterectomy, Orthopedic Surgery, Tonsillectomy Additional Past Surgical History / Comment(s): cataracts removed Past Anesthesia/Blood Transfusion Reactions: Previous Problems w/ Anesthesia, Motion Sickness Additional Past Anesthesia/Blood Transfusion Reaction / Comment(s): "low bp after gallblader sx", "went out with hand sx" Past Psychological History: No Psychological Hx Reported Smoking Status: Former smoker Past Alcohol Use History: None Reported Past Drug Use History: None Reported - Past Family History Mother Family Medical History: Seizure Disorder Additional Family Medical History / Comment(s): epileptic, anueysm Father Family Medical History: Diabetes Mellitus Additional Family Medical History / Comment(s): macular degeneration, blind General Exam - General Exam Comments Initial Comments: General: The patient is awake and alert, in no distress, and does not appear acutely ill. Eye: Pupils are equal, round and reactive to light, extra-ocular movements are intact. No nystagmus. There is normal conjunctiva bilaterally. No signs of icterus. Ears, nose, mouth and throat: There are moist mucous membranes and no oral lesions. Neck: The neck is supple, there is no tenderness or JVD. Cardiovascular: There is a regular rate and rhythm. No murmur, rub or gallop is appreciated. Respiratory: Lungs are clear to auscultation, respirations are non-labored, breath sounds are equal. No wheezes, stridor, rales, or rhonchi. Gastrointestinal: Abdomen is soft on palpation. Mild tenderness diffusely through both upper and lower quadrants. No rebound, guarding or CVA tenderness. Musculoskeletal: Normal ROM, no tenderness. Strength 5/5. Sensation intact. Pulses equal bilaterally 2+. Neurological: A&O x 3. CN II-XII intact, There are no obvious motor or sensory deficits. Coordination appears grossly intact. Speech is normal. Skin: Skin is warm and dry and no rashes or lesions are noted. Psychiatric: Cooperative, appropriate mood & affect, normal judgment. Limitations: no limitations Course Vital Signs 10/02/17 09:51 Temperature 98.9 F Pulse Rate 79 Respiratory 18 Rate Blood Pressure 144/65 O2 Sat by Pulse 96 Oximetry Medical Decision Making - Medical Decision Making 87-year-old female presenting for abdominal pain over the last several weeks. States fullness in the abdomen feeling bloated. Patient's labs been reviewed does show 13,000 white count. Remaining labs reviewed. Patient's CAT scan does show dilated biliary duct which has been seen previously. Does show previous vertebral fractures. Patient's abdomen is soft on palpation at this time. There is no sign of any infection inflammation or masses. Results were discussed with the patient. Patient will be discharged home to follow-up with her family doctor and she has an appointment this coming . Patient advised to try Pepcid for her symptoms and return if any symptoms increase or worsen. - Lab Data Result diagrams: 10/02/17 10:30 10/02/17 10:30 Lab Results 10/02/17 10/02/17 10/02/17 Range/Units 10:30 10:30 10:30 WBC 13.5 H (3.8-10.6) k/uL RBC 4.10 (3.80-5.40) m/uL Hgb 11.2 L (11.4-16.0) gm/dL Hct 33.9 L (34.0-46.0) % MCV 82.8 (80.0-100.0) fL MCH 27.3 (25.0-35.0) pg MCHC 33.0 (31.0-37.0) g/dL RDW 15.6 H (11.5-15.5) % Plt Count 239 (150-450) k/uL Neutrophils % 87 % Lymphocytes % 4 % Monocytes % 6 % Eosinophils % 1 % Basophils % 0 % Neutrophils # 11.7 H (1.3-7.7) k/uL Lymphocytes # 0.6 L (1.0-4.8) k/uL Monocytes # 0.8 (0-1.0) k/uL Eosinophils # 0.1 (0-0.7) k/uL Basophils # 0.0 (0-0.2) k/uL Sodium 138 (137-145) mmol/L Potassium 4.3 (3.5-5.1) mmol/L Chloride 103 (98-107) mmol/L Carbon Dioxide 29 (22-30) mmol/L Anion Gap 6 mmol/L BUN 17 (7-17) mg/dL Creatinine 0.70 (0.52-1.04) mg/dL Est GFR (CKD-EPI)AfAm 89 (>60 ml/min/1.73 sqM) Est GFR (CKD-EPI)NonAf 77 (>60 ml/min/1.73 sqM) Glucose 148 H (74-99) mg/dL Plasma Lactic Acid Allan 1.2 (0.7-2.0) mmol/L Calcium 8.6 (8.4-10.2) mg/dL Total Bilirubin 0.4 (0.2-1.3) mg/dL AST 26 (14-36) U/L ALT 30 (9-52) U/L Alkaline Phosphatase 80 (38-126) U/L Total Protein 5.6 L (6.3-8.2) g/dL Albumin 3.1 L (3.5-5.0) g/dL Amylase <30 L (30-110) U/L Lipase 43 (23-300) U/L Urine Color Urine Appearance (Clear) Urine pH (5.0-8.0) Ur Specific [place] (1.001-1.035) Urine Protein (Negative) Urine Glucose (UA) (Negative) Urine Ketones (Negative) Urine Blood (Negative) Urine Nitrite (Negative) Urine Bilirubin (Negative) Urine Urobilinogen (<2.0) mg/dL Ur Leukocyte Esterase (Negative) Urine RBC (0-5) /hpf Urine WBC (0-5) /hpf Ur Squamous Epith Cells (0-4) /hpf Urine Bacteria (None) /hpf Urine Mucus (None) /hpf 10/02/17 Range/Units 10:46 WBC (3.8-10.6) k/uL RBC (3.80-5.40) m/uL Hgb (11.4-16.0) gm/dL Hct (34.0-46.0) % MCV (80.0-100.0) fL MCH (25.0-35.0) pg MCHC (31.0-37.0) g/dL RDW (11.5-15.5) % Plt Count (150-450) k/uL Neutrophils % % Lymphocytes % % Monocytes % % Eosinophils % % Basophils % % Neutrophils # (1.3-7.7) k/uL Lymphocytes # (1.0-4.8) k/uL Monocytes # (0-1.0) k/uL Eosinophils # (0-0.7) k/uL Basophils # (0-0.2) k/uL Sodium (137-145) mmol/L Potassium (3.5-5.1) mmol/L Chloride (98-107) mmol/L Carbon Dioxide (22-30) mmol/L Anion Gap mmol/L BUN (7-17) mg/dL Creatinine (0.52-1.04) mg/dL Est GFR (CKD-EPI)AfAm (>60 ml/min/1.73 sqM) Est GFR (CKD-EPI)NonAf (>60 ml/min/1.73 sqM) Glucose (74-99) mg/dL Plasma Lactic Acid Allan (0.7-2.0) mmol/L Calcium (8.4-10.2) mg/dL Total Bilirubin (0.2-1.3) mg/dL AST (14-36) U/L ALT (9-52) U/L Alkaline Phosphatase (38-126) U/L Total Protein (6.3-8.2) g/dL Albumin (3.5-5.0) g/dL Amylase (30-110) U/L Lipase (23-300) U/L Urine Color Yellow Urine Appearance Cloudy H (Clear) Urine pH 5.5 (5.0-8.0) Ur Specific [place] 1.020 (1.001-1.035) Urine Protein 1+ H (Negative) Urine Glucose (UA) Negative (Negative) Urine Ketones Negative (Negative) Urine Blood Small H (Negative) Urine Nitrite Negative (Negative) Urine Bilirubin Negative (Negative) Urine Urobilinogen <2.0 (<2.0) mg/dL Ur Leukocyte Esterase Negative (Negative) Urine RBC 8 H (0-5) /hpf Urine WBC 3 (0-5) /hpf Ur Squamous Epith Cells 1 (0-4) /hpf Urine Bacteria Rare H (None) /hpf Urine Mucus Rare H (None) /hpf Disposition Clinical Impression: Abdominal pain Disposition: HOME SELF-CARE Condition: Good Instructions: Abdominal Pain (ED) Additional Instructions: Please use medication as discussed. Please follow-up with family doctor with her scheduled appointment this coming week. Please return to emergency room if the symptoms increase or worsen or for any other concerns. Prescriptions: Famotidine [Pepcid] 20 mg PO BID #20 tablet Is patient prescribed a controlled substance at d/c from ED?: No Referrals: Oc Jeong MD [Primary Care Provider] - 1-2 days Time of Disposition: 13:01
[2017-10-02 10:43] LABS: Basophils % (A) 0 %; Eosinophils # (A) 0.1 k/uL (0-0.7); Eosinophils % (A) 1 %; HCT 33.9 % (34.0-46.0); HGB 11.2 gm/dL (11.4-16.0); Lymphocytes # (A) 0.6 k/uL (1.0-4.8); Lymphocytes % (A) 4 %; MCH 27.3 pg (25.0-35.0); MCV 82.8 fL (80.0-100.0); Mean Platelet Volume 7.6; Monocytes # (A) 0.8 k/uL (0-1.0); Monocytes % (A) 6 %; Neutrophils # (A) 11.7 k/uL (1.3-7.7); Neutrophils % (A) 87 %; Platelet Count 239 k/uL (150-450); RDW 15.6 % (11.5-15.5); WBC 13.5 k/uL (3.8-10.6)
[2017-10-02 10:54] LABS: Appearance,Urine Cloudy (Clear); Bacteria,Urine Rare /hpf; Bilirubin,Urine Negative (Negative); Blood,Urine Small (Negative); Color,Urine Yellow; Glucose,Urine (UA) Negative (Negative); Ketones,Urine Negative (Negative); Leukocyte Esterase,Urine Negative (Negative); Mucus,Urine Rare /hpf; Nitrite,Urine Negative (Negative); PH, Urine 5.5 (5.0-8.0); Protein,Urine 1+ (Negative); RBC,Urine 8 /hpf (0-5); Squamous Epithelial Cell,Urine 1 /hpf (0-4); Urobilinogen,Urine <2.0 mg/dL (<2.0); WBC,Urine 3 /hpf (0-5)
[2017-10-02 10:54] LABS: ALT 30 U/L (9-52); AST 26 U/L (14-36); Albumin 3.1 g/dL (3.5-5.0); Alkaline Phosphatase 80 U/L (38-126); Amylase <30 U/L (30-110); Anion Gap 6 mmol/L; Blood Urea Nitrogen 17 mg/dL (7-17); Calcium 8.6 mg/dL (8.4-10.2); Carbon Dioxide 29 mmol/L (22-30); Chloride 103 mmol/L (98-107); Glucose 148 mg/dL (74-99); Lipase 43 U/L (23-300); Potassium 4.3 mmol/L (3.5-5.1); Sodium 138 mmol/L (137-145); Total Bilirubin 0.4 mg/dL (0.2-1.3); Total Protein 5.6 g/dL (6.3-8.2)
--- NOTE | 2017-10-02 11:22 | XR ---
EXAMINATION TYPE: XR KUB , ONE VIEW DATE OF EXAM ORDERED: 10/02/2017 HISTORY: abdominal pain. COMPARISON: Previous study dated 05/09/2010. FINDINGS: The lung bases are clear. The heart is enlarged. Within the abdomen, the gallbladder is been removed. The abdominal gas pattern is within normal limit s. There are phleboliths within the pelvis. There is no evidence of obstruction or free air. IMPRESSION: NO ACUTE INTRA-ABDOMINAL ABNORMALITY.
--- NOTE | 2017-10-02 12:41 | CT ---
EXAMINATION TYPE: CT abdomen pelvis w con DATE OF EXAM: 10/02/2017 REFERENCE: Previous study dated 08/28/2010. HISTORY: abdominal pain HISTORY: pain CT DLP: 690.5 mGy Automated exposure control for dose reduction was used. TECHNIQUE: Helical acquisition through the abdomen and pelvis was obtained following the oral ingesti on of without Oral Contrast and following intravenous administration of 100 mL of Isovue 300. The nona a was reformatted in axial, coronal and sagittal projections. FINDINGS: Visualized portions of the lungs are clear there is no pleural or pericardial fluid. The he art is mildly enlarged. Within the abdomen, the gallbladder is been removed. There is biliary dilatation and dilatation of th e distal common bile duct the level of the head of the pancreas. Maximal common duct diameter is 1.8 cm. The spleen is unremarkable. Both adrenal glands are unremarkable. Both kidneys demonstrate function and appear morphologically normal. The pancreas is somewhat atrophic but otherwise unremarkable. There is moderate atheromatous calcification of the visualized arterial tree. There is no significant retroperitoneal, iliac or inguinal adenopathy. The bladder is unremarkable. The uterus and ovaries are not visualized. There is diverticular changes within the sigmoid region. I do not see convincing evidence of divertic ulitis. The appendix is not visualized. Small bowel caliber is normal. There is no free fluid and no free air. There is some scarring in the anterior abdominal wall, likely due to previous surgery. There is been previous kyphoplasty is at L4 and T11. There are wedge compression fractures of L3, L4 and L2 as well as T11. Although sagittal projections were not performed on the previous examination o n the coronal projections these appear to be some stable. There is evidence of moderate central canal stenosis at L3-4 and L4-5. This was present previously. There is severe facet arthropathy at C4-5. IMPRESSION: 1. BILIARY DILATATION, UNCHANGED FROM PREVIOUS. 2. UNCOMPLICATED DIVERTICULOSIS OF THE SIGMOID COLON. 3. POSTSURGICAL CHANGE. 4. MULTIPLE WEDGE COMPRESSION FRACTURES OF THE DORSAL AND LUMBAR SPINES WITH PREVIOUS KYPHOPLASTY'S. THIS HAS RESULTED IN MODERATE TO SEVERE CENTRAL CANAL COMPROMISE AT L3-4 AND L4-5.
[2017-10-02 13:11] VITALS: BP 173/83; PULSE 72; RESP 16; TEMP 100.8
== END 2017-10-02 13:40 | disposition home or self-care (01) ==
LOC: EC 09:47
DX: R10.84 Generalized abdominal pain (principal); R11.0 Nausea; E11.9 Type 2 diabetes mellitus without complications; E78.5 Hyperlipidemia, unspecified; I10 Essential (primary) hypertension; I25.2 Old myocardial infarction; E07.9 Disorder of thyroid, unspecified; M19.90 Unspecified osteoarthritis, unspecified site; Z87.891 Personal history of nicotine dependence; Z79.84 Long term (current) use of oral hypoglycemic drugs; Z79.899 Other long term (current) drug therapy; Z90.49 Acquired absence of other specified parts of digestive tract; Z98.890 Other specified postprocedural states
CPT/HCPCS: 36415; 80053; 82150; 83605; 83690; 85025; 81001; 74018; 74177; 99284; Q9967